=== PATIENT | female | born 1970 | race Caucasian/White ===

== ENCOUNTER 2016-11-12 09:58 | Emergency (ER) | payer BC, OTHER ==
[~2016-11-12] VITALS: Ht 165.1 cm; Wt 58.0 kg
[~2016-11-12 09:58] MED LIST: BACL10TA PO; IBUP800T23 PO; LORTA5 PO
[2016-11-12 10:00] VITALS: BP 140/81; PULSE 112; RESP 20; TEMP 97.4; O2SAT 100
[2016-11-12 10:40] VITALS: BP 132/74; PULSE 82; RESP 18; O2SAT 100
[2016-11-12] MEDS ORDERED: PRED20 PO (10:42)
--- NOTE | 2016-11-12 11:43 | PD ---
HPI Chief Complaint: Respiratory Symptoms Time Seen by Provider: 10:39 Travel History International Travel<30 days: No Contact w/Intl Traveler<30days: No Traveled to known affect area: No History of Present Illness HPI 46-year-old woman presents to the emergency department with a plethora of symptoms. Sounds like several weeks ago she started getting generalized joint pain and myalgias. Saw her primary doctor. Thought that she may have Lyme disease. She had some blood tests done that were negative. She is having a lot of fatigue and lethargy that time as well. That she started getting worsening chest pain and trouble breathing. She went to the emergency department at [facility] where she had testing done including x-ray EKG blood work including troponin, and a CT scan of her lungs was all negative. She presents back today because she had periods of elevated heart rate overnight. States at times her heart was up to 120 to 130s. She states she called her primary doctor , Dr. Herrera, referred her to the emergency department. She is on her second third day of steroids taken for inflammation in her joints and chest. History Past Medical History Medical History: Denies Significant Hx Tetanus Vaccination: > 5 Years Influenza Vaccination: No LMP: UNK : 1 Para: 1 Social History Alcohol Use: Yes (OCCAS) Tobacco Use: No Allergies-Medications (Allergen,Severity, Reaction): Coded Allergies: Aspirin (Verified Allergy, Mild, Nausea/Vomiting, 11/12/16) Reported Meds & Prescriptions Reported Meds & Active Scripts Active Reported Prednisone 20 Mg Tab 20 Mg PO TID Review of Systems Except as stated in HPI: all other systems reviewed are Neg Physical Exam Narrative GENERAL: Well-appearing 46-year-old woman, no acute distress. SKIN: Warm and dry. NECK: Trachea midline. No JVD. CARDIOVASCULAR: Regular rate and rhythm. No murmur appreciated. RESPIRATORY: No accessory muscle use. Clear to auscultation. Breath sounds equal bilaterally. GASTROINTESTINAL: Abdomen soft, non-tender, nondistended. Hepatic and splenic margins not palpable. MUSCULOSKELETAL: No obvious deformities. No edema. NEUROLOGICAL: Awake and alert. No obvious cranial nerve deficits. Motor grossly within normal limits. Normal speech. Data Data Last Documented VS Vital Signs Date Time Temp Pulse Resp B/P Pulse Ox O2 Delivery O2 Flow Rate FiO2 11/12/16 10:40 90 18 100 Room Air 11/12/16 10:40 132/74 11/12/16 10:00 97.4 Orders Electrocardiogram (11/12/16 ) Ed Poc Ultrasound (11/12/16 ) [facility] Medical Decision Making Medical Screen Exam Complete: Yes Emergency Medical Condition: Yes Interpretation(s) My review of EKG: Normal sinus rhythm at a rate of 76, normal axis, normal intervals, no evidence of pericarditis. Differential Diagnosis Pericarditis, rheumatologic disease, anxiety, other Narrative Course Medical decision making 46-year-old woman presents emergency Department with joint pain chest pain shortness of breath, recent negative workup that included CT scan of the lungs, presumably for PE, labs, negative thyroid test, negative Lyme test, with some tachycardia. She looks fine. She has some positional characteristic to her chest but it could suggest pericarditis. I don't hear a rub. EKG is normal. There is no pericardial fluid on ultrasound. This point is recommended supportive treatment and outpatient follow-up. Suspect some, but of anxiety as well. Procedures Procedure Narrative Point of care ultrasound: Focus transthoracic cardiac ultrasound was perform immediate the bedside to evaluate for pericardial effusion. No pericardial effusion was visualized. EF was grossly normal. Diagnosis Primary Impression: Chest tightness Additional Instructions: Continue current medications. Follow with her primary doctor. Return to the emergency department for any new or worsening symptoms. Disposition: 01 DISCHARGE HOME Condition: Stable Santosh Henriquez MD Nov 12, 2016 11:43
--- NOTE | 2016-11-12 19:53 | EKG ---
Date Performed: 11/12/2016 Time Performed: 11:27:26 PTAGE: 46 years EKG: Sinus rhythm NORMAL ECG PREVIOUS TRACING : 01/16/2012 08.09 Since previous tracing, no significant change noted DOCTOR: Emery Juan Interpretating Date/Time 11/12/2016 19:52:28
== END 2016-11-12 13:46 | disposition home or self-care (01) ==
LOC: NEPC 09:58
DX: R07.89 Other chest pain (principal); R06.00 Dyspnea, unspecified
CPT/HCPCS: 93005

== ENCOUNTER 2018-04-07 06:56 | Observation (INO) | payer OTHER ==
[2018-04-07] VITALS (12 sets, daily range): BP systolic 111–136; BP diastolic 70–85; PULSE 73–95; RESP 18–20; TEMP 96.5–98.4; O2SAT 97–100
[~2018-04-07] VITALS: Ht 162.6 cm; Wt 56.2 kg
[~2018-04-07 06:56] MED LIST changes: -BACL10TA PO; -IBUP800T23 PO; -LORTA5 PO; +PRED20 PO
[2018-04-07] MEDS ORDERED: CAFF3TAB PO (07:25)
[2018-04-07] MEDS ORDERED: LEVE10003 PO (07:25)
[2018-04-07] MEDS ORDERED: POTA-255 PO (07:25)
[2018-04-07] MEDS ORDERED: MULT-65 PO (07:25)
[2018-04-07] MEDS ORDERED: BACL10TA PO (07:25)
[2018-04-07] MEDS ORDERED: GABA100C4 PO (07:25)
[2018-04-07] MEDS ORDERED: CARV6.252 PO (07:25)
--- NOTE | 2018-04-07 07:25 | RADRPT ---
EXAM DATE: 04/07/2018 7:21 AM EDT AGE/SEX: 48 years / Female INDICATIONS: Chest pains today CLINICAL DATA: This is the patient's initial encounter. Patient reports that signs and symptoms have been present for 1 day and indicates a pain score of 8/10. MEDICAL/SURGICAL HISTORY: . Lyme disease None. COMPARISON: No prior [facility] exams available for comparison. FINDINGS: A single AP view of the chest demonstrates the lungs to be symmetrically aerated without evidence of mass, infiltrate or effusion. The cardiomediastinal contours are unremarkable. Osseous structures a re intact. CONCLUSION: Negative examination. Electronically signed by: Tala Berger MD 04/07/2018 7:23 AM EDT
[2018-04-07] MEDS ORDERED: SODIUM CHLORIDE 0.9% FLUSH 10 ML FLUSH IVF PRN (07:30)
[2018-04-07 07:31] LABS: AUTOMATED NEUTROPHIL # 8.4 TH/MM3 (1.8-7.7); BASOPHIL # 0.1 TH/MM3 (0-0.2); BASOPHIL % 1.3 % (0.0-2.0); EOSINOPHIL % 0.1 % (0.0-4.0); HEMATOCRIT 41.1 % (35.0-46.0); HEMOGLOBIN 14.3 GM/DL (11.6-15.3); LYMPH % 10.9 % (9.0-44.0); LYMPHOCYTE # 1.1 TH/MM3 (1.0-4.8); MEAN CELL VOLUME 93.3 FL (80.0-100.0); MEAN CORPUSCULAR HEMOGLOBIN 32.4 PG (27.0-34.0); MEAN CORPUSCULAR HGB CONC 34.8 % (32.0-36.0); MEAN PLATELET VOLUME 7.4 FL (7.0-11.0); MONO % 6.7 % (0.0-8.0); MONOCYTE # 0.7 TH/MM3 (0-0.9); PLATELET COUNT 248 TH/MM3 (150-450); RED CELL DISTRIBUTION WIDTH 13.8 % (11.6-17.2); WHITE BLOOD COUNT 10.3 TH/MM3 (4.0-11.0)
--- NOTE | 2018-04-07 07:42 | PD ---
HPI Chief Complaint: Chest Pain Time Seen by Provider: 07:16 Travel History International Travel<30 days: No Contact w/Intl Traveler<30days: No Traveled to known affect area: No History of Present Illness HPI 48-year-old female had an episode this morning where she states she felt short of breath. She called her father who came over. He is now present at bedside. He states when he got to her she was unresponsive and not breathing so he gave her boost oxygen that he had available and gave her about three 30 second rounds of CPR. He states she came to and started breathing after this and is not sure if she was responsive during the CPR episodes because he was nervous. Patient does not remember what happened and has had recent syncopal workup in [place]. They thought that that was a possible seizure related to her Lyme disease diagnosed a year ago and she was started on Keppra. History is limited from patient. PFSH Past Medical History Heart Rhythm Problems: Yes (TACHYCARDIA D/T LYMES) Cardiovascular Problems: Yes Diminished Hearing: No Medical other: Yes (LYMES) Neurologic: Yes Seizures: Yes Influenza Vaccination: No ?: Not : 1 Para: 1 Miscarriage: 0 : 0 Past Surgical History Cholecystectomy: Yes Gynecologic Surgery: Yes (ABLATION 2010) Social History Alcohol Use: Yes (OCCAS) Tobacco Use: No Substance Use: No Allergies-Medications (Allergen,Severity, Reaction): Coded Allergies: aspirin (Unverified Allergy, Mild, Nausea/Vomiting, 04/07/18) Reported Meds & Prescriptions Reported Meds & Active Scripts Active Reported Multi-Vitamin Daily (Multiple Vitamin) 1 Tab Tab 1 Tab PO DAILY Potassium (Potassium Gluconate) 600 Mg (99 Mg) Tablet 1 Tab PO DAILY Diurex (Caffeine-Magnesium Salicylate) 50-162.5 Mg Tab 2 Tab PO Q4-6H PRN Do not exceed 8 pills per day. Drink 6-8 glasses of water daily. Levetiracetam 1,000 Mg Tab 1,000 Mg PO TID Carvedilol 6.25 Mg Tab 6.25 Mg PO BID Baclofen 10 Mg Tab 10 Mg PO TID Gabapentin 100 Mg Cap 100 Mg PO TID Prednisone 20 Mg Tab 20 Mg PO TID Review of Systems Except as stated in HPI: all other systems reviewed are Neg Physical Exam Narrative GENERAL: 48-year-old female in no apparent distress SKIN: Focused skin assessment warm/dry. HEAD: Atraumatic. Normocephalic. EYES: Pupils equal and round. No scleral icterus. No injection or drainage. ENT: No nasal bleeding or discharge. Mucous membranes pink and moist. NECK: Trachea midline. CARDIOVASCULAR: Regular rate and rhythm. RESPIRATORY: No accessory muscle use. Clear to auscultation. Breath sounds equal bilaterally. GASTROINTESTINAL: Abdomen soft, non-tender, nondistended. MUSCULOSKELETAL: No obvious deformities. No clubbing. No cyanosis. No edema. NEUROLOGICAL: Awake and alert. No obvious cranial nerve deficits. Motor grossly within normal limits. Normal speech. Data Data Last Documented VS Vital Signs Date Time Temp Pulse Resp B/P (MAP) Pulse Ox O2 Delivery O2 Flow Rate FiO2 04/07/18 09:00 73 18 132/70 (90) 97 Room Air 111/73 (86) 04/07/18 06:56 98.4 Orders Orders Electrocardiogram (04/07/18 06:58) Complete Blood Count With Diff (04/07/18 06:58) Basic Metabolic Panel (Bmp) (04/07/18 06:58) Ckmb (Isoenzyme) Profile (04/07/18 06:58) Troponin I (04/07/18 06:58) Chest, Single Ap (04/07/18 06:58) Iv Access Insert/Monitor (04/07/18 06:58) Ecg Monitoring (04/07/18 06:58) Oxygen Administration (04/07/18 06:58) Oximetry (04/07/18 06:58) Hepatic Functional Panel (04/07/18 07:16) Magnesium (Mg) (04/07/18 07:16) Prothrombin Time / Inr (Pt) (04/07/18 07:16) Act Partial Throm Time (Ptt) (04/07/18 07:16) Bilateral Bp Monitoring (04/07/18 07:16) Sodium Chloride 0.9% Flush (Ns Flush) (04/07/18 07:30) Ct Brain W/O Iv Contrast(Rout) (04/07/18 ) Urinalysis - C+S If Indicated (04/07/18 07:21) Potassium Chloride Eff (K-Lyte Cl Eff) (04/07/18 08:30) Labs Laboratory Tests Test 04/07/18 07:21 04/07/18 08:08 White Blood Count 10.3 TH/MM3 Red Blood Count 4.40 MIL/MM3 Hemoglobin 14.3 GM/DL Hematocrit 41.1 % Mean Corpuscular Volume 93.3 FL Mean Corpuscular Hemoglobin 32.4 PG Mean Corpuscular Hemoglobin Concent 34.8 % Red Cell Distribution Width 13.8 % Platelet Count 248 TH/MM3 Mean Platelet Volume 7.4 FL Neutrophils (%) (Auto) 81.0 % Lymphocytes (%) (Auto) 10.9 % Monocytes (%) (Auto) 6.7 % Eosinophils (%) (Auto) 0.1 % Basophils (%) (Auto) 1.3 % Neutrophils # (Auto) 8.4 TH/MM3 Lymphocytes # (Auto) 1.1 TH/MM3 Monocytes # (Auto) 0.7 TH/MM3 Eosinophils # (Auto) 0.0 TH/MM3 Basophils # (Auto) 0.1 TH/MM3 CBC Comment DIFF FINAL Differential Comment Prothrombin Time 10.1 SEC Prothromb Time International Ratio 1.0 RATIO Activated Partial Thromboplast Time 21.6 SEC Blood Urea Nitrogen 16 MG/DL Creatinine 0.77 MG/DL Random Glucose 118 MG/DL Calcium Level 8.2 MG/DL Sodium Level 140 MEQ/L Potassium Level 3.1 MEQ/L Chloride Level 104 MEQ/L Carbon Dioxide Level 27.7 MEQ/L Anion Gap 8 MEQ/L Estimat Glomerular Filtration Rate 80 ML/MIN Magnesium Level 2.4 MG/DL Total Bilirubin 0.4 MG/DL Direct Bilirubin 0.1 MG/DL Indirect Bilirubin 0.3 MG/DL Aspartate Amino Transf (AST/SGOT) 15 U/L Alanine Aminotransferase (ALT/SGPT) 46 U/L Alkaline Phosphatase 62 U/L Total Creatine Kinase 23 U/L Troponin I LESS THAN 0.02 NG/ML Total Protein 6.3 GM/DL Albumin 3.3 GM/DL Urine Color YELLOW Urine Turbidity SL CLOUDY Urine pH 7.5 Urine Specific Loyal 1.010 Urine Protein NEG mg/dL Urine Glucose (UA) NEG mg/dL Urine Ketones NEG mg/dL Urine Occult Blood NEG Urine Nitrite NEG Urine Bilirubin NEG Urine Urobilinogen 0.2 MG/DL Urine Leukocyte Esterase TRACE MDM Medical Decision Making Medical Screen Exam Complete: Yes Emergency Medical Condition: Yes Medical Record Reviewed: Yes (Past history confirmed) Interpretation(s) CBC & BMP Diagram 04/07/18 07:21 Calcium Level 8.2 L Last 24 hours Impressions Chest X-Ray 04/07/18 0658 Signed Impressions: CONCLUSION: Negative examination. Head CT 04/07/18 0000 Signed Impressions: CONCLUSION: 1. Negative CT Head non contrast. Differential Diagnosis Musculoskeletal, pericarditis, atypical cardiac Narrative Course We will check blood work, chest x-ray, CT brain and reevaluate ed workup no acute, agrees to observation Physician Communication Physician Communication dr allen agrees to admit Diagnosis Primary Impression: Syncope Qualified Codes: R55 - Syncope and collapse Additional Impressions: Unresponsive episode Chest pain Qualified Codes: R07.9 - Chest pain, unspecified Admitting Information Admitting Physician Requests: Observation Yasmine Austin MD Apr 07, 2018 07:42
[2018-04-07 07:43] LABS: CHLORIDE 104 MEQ/L (98-107); SODIUM (NA) 140 MEQ/L (136-145)
[2018-04-07 07:46] LABS: ALBUMIN 3.3 GM/DL (3.4-5.0); CALCIUM 8.2 MG/DL (8.5-10.1); MAGNESIUM 2.4 MG/DL (1.5-2.5)
[2018-04-07 07:47] LABS: BICARBONATE 27.7 MEQ/L (21.0-32.0); BLOOD UREA NITROGEN 16 MG/DL (7-18); GLUCOSE,RANDOM 118 MG/DL (74-106); PROTHROMBIN TIME - PATIENT 10.1 SEC (9.8-11.6)
[2018-04-07 07:49] LABS: DIRECT BILIRUBIN ADULT 0.1 MG/DL (0.0-0.2)
[2018-04-07 07:50] LABS: CREATININE 0.77 MG/DL (0.50-1.00); GLOMERULAR FILTRATION RATE 80 ML/MIN (>89)
[2018-04-07 07:51] LABS: INDIRECT BILIRUBIN 0.3 MG/DL (0.0-0.8); TOTAL BILIRUBIN ADULT 0.4 MG/DL (0.2-1.0); TOTAL PROTEIN 6.3 GM/DL (6.4-8.2)
[2018-04-07 07:55] LABS: TROPONIN I LESS THAN 0.02 NG/ML (0.02-0.05)
[2018-04-07 08:18] LABS: BILIRUBIN, URINE NEG (NEG); BLOOD, URINE NEG (NEG); GLUCOSE,URINE NEG (NEG); KETONE, URINE NEG (NEG); NITRITE,URINE NEG (NEG); PH, URINE 7.5 (5.0-8.5); URINE COLOR YELLOW (YELLW/STRAW); URINE LEUKOCYTE ESTERASE TRACE (NEG)
[2018-04-07] MEDS ORDERED: POTASSIUM CHLORIDE 25 MEQ EFFERVESCENT TAB PO ONE (08:30)
--- NOTE | 2018-04-07 08:43 | RADRPT ---
EXAM DATE: 04/07/2018 8:23 AM EDT AGE/SEX: 48 years / Female INDICATIONS: Possible syncopal episode today. CLINICAL DATA: This is the patient's initial encounter. Patient reports that signs and symptoms have been present for 1 day and indicates a pain score of 0/10. MEDICAL/SURGICAL HISTORY: Cardiovascular disease. Cholecystectomy. RADIATION DOSE: 49.40 CTDI (mGy) COMPARISON: [facility], CT BRAIN W/O CONTRAST, 02/18/2015. . TECHNIQUE: CT of the head without contrast. Using automated exposure control and adjustment of the mA and/or kV according to patient size, radiation dose was kept as low as reasonably achievable to ob tain optimal diagnostic quality images. FINDINGS: Cerebrum: The ventricles are normal for age. No evidence of midline shift, mass lesion, hemorrhage or acute infarction. No extraaxial fluid collections are seen. Posterior Fossa: The cerebellum and brainstem are intact. The 4th ventricle is midline. The cerebe llopontine angle is unremarkable. Extracranial: The visualized portion of the orbits is intact. Skull: The calvaria is intact. No evidence of skull fracture. CONCLUSION: 1. Negative CT Head non contrast. Electronically signed by: Tala Berger MD 04/07/2018 8:42 AM EDT
[2018-04-07] MEDS ORDERED: ACETAMINOPHEN 325 MG TAB PO PRN (09:15)
[2018-04-07] MEDS ORDERED: SODIUM CHLORIDE 0.9% FLUSH 10 ML FLUSH IV FLUSH PRN (09:15)
[2018-04-07] MEDS ORDERED: NALOXONE HCL 0.4 MG/ML AMP IV PUSH PRN (09:15)
[2018-04-07 09:24] LABS: AMORPHOUS SEDIMENT, URINE MOD; BACTERIA, URINE MOD /hpf
[2018-04-07] MEDS: LACTATED RINGER'S 1000 ML INJ 1,000 ML IV SCH ×2 (09:37→19:06)
[2018-04-07] MEDS ORDERED: ENOXAPARIN SODIUM 40 MG/0.4 ML SYRINGE SQ SCH (10:00)
[2018-04-07] MEDS ORDERED: LORazepam 2 MG/ML VIAL IV PUSH PRN (10:15)
[2018-04-07] MEDS: levETIRAcetam 500 MG TAB PO SCH ×3 (10:35→16:58)
[2018-04-07] MEDS ORDERED: CARV12.52 PO (10:38)
[2018-04-07] MEDS ORDERED: GABA600T PO (10:38)
--- NOTE | 2018-04-07 10:40 | HHI.HP ---
[facility] Service [facility] Primary Care Physician You Herrera MD Admission Diagnosis Unresponsive episode, chest pain Diagnoses: Chief Complaint: Unresponsive at home Travel History International Travel<30 Days: No Contact w/Intl Traveler <30 Da: No Traveled to Known Affected Are: No History of Present Illness This is a 48-year-old female patient with a known medical history of Lyme disease and seizures who presented to the ED after an episode of unresponsiveness at home. Supposedly patient lives in the same building as her father, and called him this morning complaints of shortness of breath and asking him to come immediately to help her. When the father arrived in her room he states that she was having a seizure and immediately after she became unresponsive, was not breathing, and was reportedly blue. Father states that he performed 2 minutes of CPR with supplemental O2 and the patient eventually became responsive. EVAC brought her into the hospital. This morning patient was seen shortly after another seizure episode that lasted roughly 30 seconds, was given 1 mg of Ativan bedside and upon assessment patient is awake and alert. There was no postictal state. At the time of assessment patient is alert and awake and oriented, she does admit to being diagnosed with Lyme disease one year ago, was started on Keppra. Supposedly patient has a seizure episode every time she forgets to take her Keppra. She denies taking her Keppra this morning. It should be noted that patient does admit to recent weakness in her bilateral lower extremities, does admit to frequent falls at home and there are apparent bruising in her upper and lower extremities. Patient does use a walker at home now due to her weakness. She does not follow with a neurologist. PCP is Dr. Herrera, was last seen yesterday and she was referred to Dr. Avery although has not seen him yet. Patient does admit to traveling to [place] last weekend and presented to the ER at that time for another seizure, was not admitted and eventually discharged. 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 Drink 6-8 glasses of water daily. Levetiracetam 1,000 Mg Tab 1,000 Mg PO TID Baclofen 10 Mg Tab 10 Mg PO TID Prednisone 20 Mg Tab 20 Mg PO TID Allergies: Coded Allergies: aspirin (Unverified Allergy, Mild, Nausea/Vomiting, 04/07/18) Active Ordered Medications Current Medications Medications (Trade) Dose Ordered Sig/Nelly Route Start Time Stop Time Status Last Admin (NS Flush) 2 ml UNSCH PRN IVF 04/07/18 07:30 Lactated Ringer's 1,000 ml @ 100 mls/hr Q10H IV 04/07/18 09:14 04/07/18 09:37 (NS Flush) 2 ml UNSCH PRN IV FLUSH 04/07/18 09:15 04/07/18 09:37 (NS Flush) 2 ml BID IV FLUSH 04/07/18 21:00 (Tylenol) 650 mg Q4H PRN PO 04/07/18 09:15 (Lovenox Inj) 40 mg Q24H SQ 04/07/18 10:00 04/07/18 09:38 (Narcan Inj) 0.4 mg UNSCH PRN IV PUSH 04/07/18 09:15 (Ativan Inj) 1 mg Q2H PRN IV PUSH 04/07/18 10:15 04/07/18 11:29 (Keppra) 1,000 mg TID PO 04/07/18 10:15 04/07/18 10:35 (Lioresal) 10 mg TID PO 04/07/18 13:00 04/07/18 12:25 (Coreg) 12.5 mg BID PO 04/07/18 21:00 (Neurontin) 600 mg TID PO 04/07/18 13:00 04/07/18 12:25 (Deltasone) 20 mg TID PO 04/07/18 13:00 04/07/18 12:25 (Theragran) 1 tab DAILY PO 04/08/18 09:00 Family History Denies any significant family medical history. Social History Denies any tobacco, alcohol or illicit drug use. Physical Exam Vital Signs Vital Signs Date Time Temp Pulse Resp B/P (MAP) Pulse Ox O2 Delivery O2 Flow Rate FiO2 04/07/18 09:55 04/07/18 09:23 97 Room Air 04/07/18 09:21 78 98 Room Air 04/07/18 09:00 73 18 132/70 (90) 97 Room Air 111/73 (86) 04/07/18 07:09 78 18 100 Room Air 04/07/18 07:07 100 Room Air 04/07/18 07:07 100 Room Air 04/07/18 06:56 98.4 78 18 130/85 (100) 100 Physical Exam GENERAL: Well-developed, well-nourished patient in NAD. SKIN: Warm and dry. No rash. HEAD: Normocephalic. Atraumatic. EYES: Pupils equal and round. No scleral icterus. No injection or drainage. ENT: No nasal bleeding or discharge. Mucous membranes pink and moist. NECK: Supple. Trachea midline. CARDIOVASCULAR: Regular rate and rhythm. S1, S2 noted. No murmur appreciated. RESPIRATORY: No accessory muscle use. Clear to auscultation. Breath sounds equal bilaterally. GASTROINTESTINAL: Abdomen soft, non-tender, nondistended. Normoactive bowel sounds x4. MUSCULOSKELETAL: No obvious deformities. Extremities without clubbing, cyanosis , or edema. NEUROLOGICAL: Awake and alert. No obvious cranial nerve deficits. Motor grossly within normal limits. 5/5 muscle strength in bilateral upper and lower extremities. Normal speech. PSYCHIATRIC: Appropriate mood and affect; insight and judgment normal. Laboratory Laboratory Tests Test 04/07/18 07:21 04/07/18 08:08 White Blood Count 10.3 Red Blood Count 4.40 Hemoglobin 14.3 Hematocrit 41.1 Mean Corpuscular Volume 93.3 Mean Corpuscular Hemoglobin 32.4 Mean Corpuscular Hemoglobin Concent 34.8 Red Cell Distribution Width 13.8 Platelet Count 248 Mean Platelet Volume 7.4 Neutrophils (%) (Auto) 81.0 Lymphocytes (%) (Auto) 10.9 Monocytes (%) (Auto) 6.7 Eosinophils (%) (Auto) 0.1 Basophils (%) (Auto) 1.3 Neutrophils # (Auto) 8.4 Lymphocytes # (Auto) 1.1 Monocytes # (Auto) 0.7 Eosinophils # (Auto) 0.0 Basophils # (Auto) 0.1 CBC Comment DIFF FINAL Differential Comment Prothrombin Time 10.1 Prothromb Time International Ratio 1.0 Activated Partial Thromboplast Time 21.6 Blood Urea Nitrogen 16 Creatinine 0.77 Random Glucose 118 Calcium Level 8.2 Sodium Level 140 Potassium Level 3.1 Chloride Level 104 Carbon Dioxide Level 27.7 Anion Gap 8 Estimat Glomerular Filtration Rate 80 Magnesium Level 2.4 Total Bilirubin 0.4 Direct Bilirubin 0.1 Indirect Bilirubin 0.3 Aspartate Amino Transf (AST/SGOT) 15 Alanine Aminotransferase (ALT/SGPT) 46 Alkaline Phosphatase 62 Total Creatine Kinase 23 Troponin I LESS THAN 0.02 Total Protein 6.3 Albumin 3.3 Urine Collection Type CLEAN CATCH Urine Color YELLOW Urine Turbidity SL CLOUDY Urine pH 7.5 Urine Specific Masterson 1.010 Urine Protein NEG Urine Glucose (UA) NEG Urine Ketones NEG Urine Occult Blood NEG Urine Nitrite NEG Urine Bilirubin NEG Urine Urobilinogen 0.2 Urine Leukocyte Esterase TRACE Urine WBC 9-14 Urine Squamous Epithelial Cells 6-8 Urine Amorphous Sediment MOD Urine Bacteria MOD Microscopic Urinalysis Comment CULTURE INDICATED Urine Collection Time 0808 Urine Opiates Screen NEG Urine Barbiturates Screen NEG Urine Amphetamines Screen NEG Urine Benzodiazepines Screen NEG Urine Cocaine Screen NEG Urine Cannabinoids Screen NEG Date/Time Source Procedure Growth Status 04/07/18 08:08 Urine Clean Catch Urine Culture Pending Received Result Diagram: 04/07/18 0721 04/07/18 0721 Imaging Last Impressions Chest X-Ray 04/07/18 0658 Signed Impressions: CONCLUSION: Negative examination. Head CT 04/07/18 0000 Signed Impressions: CONCLUSION: 1. Negative CT Head non contrast. Septic Shock Reassessment Septic shock perfusion: reassessment completed Caprini VTE Risk Assessment Caprini VTE Risk Assessment: No/Low Risk (score <= 1) Caprini Risk Assessment Model Point Value = 1 Point Value = 2 Point Value = 3 Point Value = 5 Age 41-60 Minor surgery BMI > 25 kg/m2 Swollen legs Varicose veins or History of unexplained or recurrent spontaneous Oral contraceptives or hormone replacement Sepsis (< 1 month) Serious lung disease, including pneumonia (< 1 month) Abnormal pulmonary function Acute myocardial infarction Congestive heart failure (< 1 month) History of inflammatory bowel disease Medical patient at bed rest Age 61-74 Arthroscopic surgery Major open surgery (> 45 min) Laparoscopic surgery (> 45 min) Malignancy Confined to bed (> 72 hours) Immobilizing plaster cast Central venous access Age >= 75 History of VTE Family history of VTE Factor V Leiden Prothrombin [id number] Lupus anticoagulant Anticardiolipin antibodies Elevated serum homocysteine Heparin-induced thrombocytopenia Other congenital or acquired thrombophilia Stroke (< 1 month) Elective arthroplasty Hip, pelvis, or leg fracture Acute spinal cord injury (< 1 month) Prophylaxis Regimen Total Risk Factor Score Risk Level Prophylaxis Regimen 0-1 Low Early ambulation 2 Moderate Order ONE of the following: *Sequential Compression Device (SCD) *Heparin 5000 units SQ BID 3-4 Higher Order ONE of the following medications: *Heparin 5000 units SQ TID *Enoxaparin/Lovenox 40 mg SQ daily (WT < 150 kg, CrCl > 30 mL/min) *Enoxaparin/Lovenox 30 mg SQ daily (WT < 150 kg, CrCl > 10-29 mL/min) *Enoxaparin/Lovenox 30 mg SQ BID (WT < 150 kg, CrCl > 30 mL/min) AND/OR *Sequential Compression Device (SCD) 5 or more Highest Order ONE of the following medications: *Heparin 5000 units SQ TID (Preferred with Epidurals) *Enoxaparin/Lovenox 40 mg SQ daily (WT < 150 kg, CrCl > 30 mL/min) *Enoxaparin/Lovenox 30 mg SQ daily (WT < 150 kg, CrCl > 10-29 mL/min) *Enoxaparin/Lovenox 30 mg SQ BID (WT < 150 kg, CrCl > 30 mL/min) AND *Sequential Compression Device (SCD) Assessment and Plan Assessment and Plan This is a 48-year-old female patient with a known medical history of Lyme disease and seizures who presented to the ED after an episode of unresponsiveness at home. Acute seizure episode History of Lyme disease and seizures - Report of seizure episode and unresponsiveness at home, required 2 minutes of CPR and frequent seizures. - Head CT negative. - Will continue home Keppra. - Consult placed to neurology, input and recommendations pending. - Ativan available as needed for seizures. - Continue IV fluid at this time. - Continue home Baclofen and Neurontin. Continue home Prednisone. - Seizure precautions. - Supportive care. 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 Monitor heart rate. Hypokalemia: K 3.1 on presentation. Replacement given. Will continue to monitor BMP. Abnormal UA: Presence of leukocyte esterase and white blood cells. Await urine culture. Rule out UTI. No leukocytosis or fever or dysuria. Will hold off on antibiotics for now. Chest x-ray negative. DVT prophylaxis: SCDs. Lovenox. Katt Orozco Apr 07, 2018 10:40
[2018-04-07 12:14] LABS: TROPONIN I LESS THAN 0.02 NG/ML (0.02-0.05)
[2018-04-07] MEDS: predniSONE 20 MG TAB PO SCH ×2 (12:25→16:58)
[2018-04-07] MEDS: BACLOFEN 10 MG TAB PO SCH ×2 (12:25→16:58)
[2018-04-07] MEDS: GABAPENTIN 300 MG CAP PO SCH ×2 (12:25→17:01)
[2018-04-07] MEDS ORDERED: MAGNESIUM HYDROXIDE SUSP 30 ML CUP PO PRN (13:45)
[2018-04-07] MEDS ORDERED: BISACODYL 10 MG SUPP RECTAL PRN (13:45)
[2018-04-07] MEDS ORDERED: LACTULOSE SYRUP 20 GM/30 ML CUP PO PRN (13:45)
[2018-04-07] MEDS ORDERED: SENNOSIDES 8.6 MG TAB PO PRN (13:45)
[2018-04-07] MEDS: DOCUSATE SODIUM 50 MG/SENNA 8.6 MG TAB PO SCH ×2 (13:56→21:14)
[2018-04-07 19:09] LABS: TROPONIN I LESS THAN 0.02 NG/ML (0.02-0.05)
[2018-04-07] MEDS: SODIUM CHLORIDE 0.9% FLUSH 10 ML FLUSH IV FLUSH SCH (20:27)
[2018-04-07] MEDS: CARVEDILOL 12.5 MG TAB PO SCH (21:14)
[2018-04-07] MEDS ORDERED: GABAPENTIN 300 MG CAP PO ONE (21:15)
[2018-04-08 04:00] VITALS: BP 161/92; PULSE 67; RESP 20; TEMP 96.4; O2SAT 100
[2018-04-08] MEDS: LACTATED RINGER'S 1000 ML INJ 1,000 ML IV SCH (05:14)
[2018-04-08] MEDS: levETIRAcetam 500 MG TAB PO SCH (07:20)
[2018-04-08] MEDS: BACLOFEN 10 MG TAB PO SCH (07:20)
[2018-04-08] MEDS: predniSONE 20 MG TAB PO SCH (07:20)
[2018-04-08] MEDS: GABAPENTIN 300 MG CAP PO SCH (07:21)
[2018-04-08] MEDS: DOCUSATE SODIUM 50 MG/SENNA 8.6 MG TAB PO SCH (07:21)
[2018-04-08] MEDS: SODIUM CHLORIDE 0.9% FLUSH 10 ML FLUSH IV FLUSH SCH (07:21)
[2018-04-08] MEDS: CARVEDILOL 12.5 MG TAB PO SCH (07:21)
[2018-04-08 07:30] VITALS: BP 147/88; PULSE 73; RESP 20; TEMP 96.9; O2SAT 100
[2018-04-08 08:15] LABS: BASOPHIL % 0.4 % (0.0-2.0); EOSINOPHIL % 0.2 % (0.0-4.0); HEMATOCRIT 39.8 % (35.0-46.0); HEMOGLOBIN 13.9 GM/DL (11.6-15.3); LYMPH % 19.1 % (9.0-44.0); LYMPHOCYTE # 1.7 TH/MM3 (1.0-4.8); MEAN CELL VOLUME 94.6 FL (80.0-100.0); MEAN CORPUSCULAR HEMOGLOBIN 32.9 PG (27.0-34.0); MEAN CORPUSCULAR HGB CONC 34.8 % (32.0-36.0); MEAN PLATELET VOLUME 7.9 FL (7.0-11.0); MONO % 4.6 % (0.0-8.0); MONOCYTE # 0.4 TH/MM3 (0-0.9); NEUT % 75.7 % (16.0-70.0); PLATELET COUNT 195 TH/MM3 (150-450); RED BLOOD COUNT 4.21 MIL/MM3 (4.00-5.30); RED CELL DISTRIBUTION WIDTH 13.7 % (11.6-17.2); WHITE BLOOD COUNT 9.1 TH/MM3 (4.0-11.0)
[2018-04-08 08:22] LABS: CALCIUM 8.3 MG/DL (8.5-10.1)
--- NOTE | 2018-04-08 08:25 | HHI.PR ---
Subjective Remarks Follow up seizures and Lyme disease. Patient seen and examined, sitting up in bed awake and alert. Father at bedside. States she feels much improved, no active seizures overnight. No unresponsive episodes. All vitals stable. Slept well. Patient will be discharged home to f/u with Dr. Avery tomorrow as well as PCP. Patient encouraged to take her Keppra as prescribed. Objective Vitals Vital Signs Date Time Temp Pulse Resp B/P (MAP) Pulse Ox O2 Delivery O2 Flow Rate FiO2 04/08/18 04:00 96.4 67 20 161/92 (115) 100 04/07/18 20:30 97.4 80 18 130/74 (92) 100 04/07/18 20:00 98 21 04/07/18 19:50 75 04/07/18 15:50 96.5 95 20 136/81 (99) 100 04/07/18 12:00 91 04/07/18 11:30 97.7 88 20 129/80 (96) 100 04/07/18 10:30 98.2 87 20 131/81 (98) 100 04/07/18 10:10 100 Nasal Cannula 2.00 04/07/18 09:55 04/07/18 09:23 97 Room Air 04/07/18 09:21 78 98 Room Air 04/07/18 09:00 73 18 132/70 (90) 97 Room Air 111/73 (86) I/O 04/07/18 04/07/18 04/07/18 04/08/18 04/08/18 04/08/18 07:00 15:00 23:00 07:00 15:00 23:00 Intake Total 20 ml 1121 ml Balance 20 ml 1121 ml Intake Oral 700 ml IV Total 20 ml 421 ml # Voids 1 2 2 Result Diagram: 04/08/18 0715 04/08/18 0715 Imaging Last Impressions Chest X-Ray 04/07/18 0658 Signed Impressions: CONCLUSION: Negative examination. Head CT 04/07/18 0000 Signed Impressions: CONCLUSION: 1. Negative CT Head non contrast. Objective Remarks GENERAL: Sitting up in bed in NAD. Axox3. SKIN: Warm and dry. HEAD: Atraumatic. Normocephalic. EYES: Pupils equal and round. No scleral icterus. No injection or drainage. ENT: No nasal bleeding or discharge. Mucous membranes pink and moist. NECK: Trachea midline. No JVD. CARDIOVASCULAR: Regular rate and rhythm. RESPIRATORY: No accessory muscle use. Clear to auscultation. Breath sounds equal bilaterally. GASTROINTESTINAL: Abdomen soft, non-tender, nondistended. Hepatic and splenic margins not palpable. MUSCULOSKELETAL: Extremities without clubbing, cyanosis, or edema. No obvious deformities. NEUROLOGICAL: Awake and alert. No obvious cranial nerve deficits. Motor grossly within normal limits. Five out of 5 muscle strength in the arms and legs. Normal speech. PSYCHIATRIC: Appropriate mood and affect; insight and judgment normal. A/P Assessment and Plan This is a 48-year-old female patient with a known medical history of Lyme disease and seizures who presented to the ED after an episode of unresponsiveness at home. Acute seizure episode History of Lyme disease and seizures - Report of seizure episode and unresponsiveness at home, required 2 minutes of CPR and frequent seizures. - Head CT negative. - Will continue home Keppra. - Called neurologist station helper and updated. Patient states she is going to establish with Dr. Avery outpatient tomorrow per PCP referral. All symptoms have resolved and patient is doing much improved. - Ativan available as needed for seizures. No seizures overnight. - Was given IVF. DCd. Tolerating PO intake well with no n/v. - Continue home Baclofen and Neurontin. Continue home Prednisone. PCP and neurology outpatient to manage. - Seizure precautions at home. No driving or swimming. - Supportive care. 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 Monitor heart rate. No events overnight. Has resolved. Hypokalemia: K 3.1 on presentation. Replacement given. Follow outpatient. Patient is eating well. Abnormal UA: Presence of leukocyte esterase and white blood cells. No leukocytosis or fever or dysuria. Will hold off on antibiotics for now. Chest x-ray negative. DVT prophylaxis: SCDs. Lovenox. Discharge Planning Discharge patient to home. Condition on discharge: Improved. Regular Diet as tolerated. Ad Thu activity. No swimming or driving or operating machinery. Rx written: Continue home medications. Take Keppra as prescribed. Follow-up with primary care physician and neurologist. Katt Orozco Apr 08, 2018 08:25
[2018-04-08 08:26] LABS: CREATININE 0.51 MG/DL (0.50-1.00)
--- NOTE | 2018-04-08 08:26 | HHI.DCPOC ---
Discharge Care Plan Diagnosis: (1) Seizures (2) Lyme disease (3) Unresponsive episode Goals to Promote Your Health * To prevent worsening of your condition and complications * To maintain your health at the optimal level Directions to Meet Your Goals Take your medications as prescribed Follow your dietary instruction Follow activity as directed Keep your appointments as scheduled Take your immunizations and boosters as scheduled If your symptoms worsen call your PCP, if no PCP go to Urgent Care Center or Emergency Room Smoking is Dangerous to Your Health. Avoid second hand smoke Call the 24-hour hour crisis hotline for domestic abuse at Katt Orozco Apr 08, 2018 08:26
[2018-04-08] MEDS ORDERED: MULTIVITAMIN TAB PO SCH (09:00)
--- NOTE | 2018-04-08 17:24 | EKG ---
Date Performed: 04/07/2018 Time Performed: 07:02:27 PTAGE: 48 years EKG: Sinus rhythm NONSPECIFIC T-WAVE ABNORMALITY Compared to previous tracing, the minor T wave changes are new. JESSICA BERTRAND ECG PREVIOUS TRACING : 11/12/2016 11.27 DOCTOR: Nicholas Blankenship Interpretating Date/Time 04/08/2018 17:22:22
== END 2018-04-08 10:30 | disposition home or self-care (01) ==
LOC: PHED 06:56 → PHEDA 09:17 → PH3A 10:00
PROVIDERS: ADMIT Hospitalist; ATTEND Hospitalist
DX: R56.9 Unspecified convulsions (principal); A69.20 Lyme disease, unspecified; E87.6 Hypokalemia; R82.90 Unspecified abnormal findings in urine; R07.89 Other chest pain; R55 Syncope and collapse; R06.02 Shortness of breath; Z79.899 Other long term (current) drug therapy
CPT/HCPCS: 70450; 71045; 80048; 80076; 80307; 81001; 82550; 83735; 84484; 85025; 85610; 85652; 85730; 87086; 93005; 96361; 96372; 96374; 97162; 99285; G0378; G8987; G8988; J1650; J2060; J7120; J7512